=== PATIENT | female | born 1985 | race Caucasian/White ===

== ENCOUNTER 2016-11-24 19:57 | Emergency (ER) | payer BC ==
[2016-11-24 21:59] VITALS: BP 123/86
[2016-11-24] MEDS ORDERED: Acetaminophen TAB* 325 MG PO ONE (22:02)
--- NOTE | 2016-11-24 22:09 | UC ---
FLU HPI - HPI Summary HPI Summary: 4 days for fevers, body aches and cough - History of Current Complaint Chief Complaint: UCGeneralIllness Stated Complaint: ACHY BODY, CONGESTION, FEVER Time Seen by Provider: 11/24/16 22:05 Hx Obtained From: Patient Hx Last Menstrual Period: 10/31/16 ?: No Onset/Duration: Sudden Onset, Lasting Days - 4, Still Present Severity Currently: Moderate Severity Initially: Moderate Associated Signs & Symptoms: Positive: Fever, Myalgia, Cough, Headache Related Hx: Possible Flu/Infectious Exposure - Allergy/Home Medications Allergies/Adverse Reactions: Allergies Allergy/AdvReac Type Severity Reaction Status Date / Time No Known Allergies Allergy Verified 11/24/16 21:59 Home Medications: Home Medications [id number] [DAY TIME/NITE TIME COLD (Liquid)] 1 mis PO DAILY 11/24/16 [History Confirmed 11/24/16] PMH/Surg Hx/FS Hx/Imm Hx Previously Healthy: Yes - Surgical History Surgical History: None - Family History Known Family History: Positive: None - Social History Occupation: Employed Full-time - [employer] Lives: With Family Alcohol Use: Occasionally Substance Use Type: None Smoking Status (MU): Never Smoked Tobacco Review of Systems Constitutional: Fever, Fatigue Skin: Negative Eyes: Negative ENT: Ear Ache Respiratory: Cough Cardiovascular: Negative Gastrointestinal: Negative Genitourinary: Negative Motor: Negative Neurovascular: Negative Musculoskeletal: Arthralgia, Myalgia Neurological: Headache Psychological: Negative All Other Systems Reviewed And Are Negative: Yes Physical Exam Triage Information Reviewed: Yes Appearance: Well-Nourished, Ill-Appearing - mild, Pain Distress - mild Vital Signs: Initial Vital Signs Temp 102.1 F 11/24/16 21:56 Pulse 89 11/24/16 21:56 Resp 16 11/24/16 21:56 BP 123/86 11/24/16 21:56 Pulse Ox 99 11/24/16 21:56 Vital Signs Reviewed: Yes Eye Exam: Normal Eyes: Positive: Conjunctiva Clear ENT Exam: Normal ENT: Positive: Normal ENT inspection, Hearing grossly normal, Pharynx normal, TMs normal. Negative: Nasal congestion, Nasal drainage, Tonsillar swelling, Tonsillar exudate, Trismus, Muffled/hoarse voice Dental Exam: Normal Neck exam: Normal Neck: Positive: Supple, Nontender, No Lymphadenopathy Respiratory Exam: Normal Respiratory: Positive: Chest non-tender, Lungs clear, Normal breath sounds, No respiratory distress, No accessory muscle use Cardiovascular Exam: Normal Cardiovascular: Positive: RRR, No Murmur, Pulses Normal, Brisk Capillary Refill Abdominal Exam: Normal Abdomen Description: Positive: Nontender, No Organomegaly, Soft Bowel Sounds: Positive: Present Musculoskeletal Exam: Normal Musculoskeletal: Positive: Strength Intact, ROM Intact, No Edema Neurological Exam: Normal Neurological: Positive: Alert Psychological Exam: Normal Skin Exam: Normal Diagnostics - Laboratory Diagnostic Studies Completed/Ordered: Influenza B (+) Flu Course/Dx - Course Course Of Treatment: increase fluids, rest, tylenol, ibuprofen, follow with pcp prn - Differential Dx/Diagnosis Differential Diagnosis/HQI/PQRI: Influenza, Pneumonia, Upper Respiratory Infection Provider Diagnoses: Influenza B Discharge - Discharge Plan Condition: Stable Disposition: HOME Patient Education Materials: Acetaminophen (By mouth), Ibuprofen (By mouth), Influenza (ED) Forms: *Work Release Referrals: Georgina Bliss MD [Medical Doctor] - 5 Days Radha Warner MD [Medical Doctor] -
== END 2016-11-24 22:40 | disposition home or self-care (01) ==
LOC: UCCORT 19:57
DX: J11.1 Influenza due to unidentified influenza virus with other respiratory manifestations (principal)
CPT/HCPCS: 87502; 99212; A9270-GY; G0463

== ENCOUNTER 2019-02-10 09:59 | Emergency (ER) | payer BC, OTHER ==
[2019-02-10 10:25] VITALS: BP 132/83
--- NOTE | 2019-02-10 10:43 | UC ---
Respiratory Complaint HPI - HPI Summary HPI Summary: chest tightness x 5 days 5 out of 10 in severity , worse with deep breathing , better with rest, no cough, no cold symptoms c/o body aches, thighs pain , no fever, no chills - History of Current Complaint Chief Complaint: UCRespiratory Stated Complaint: CONGESTION,ACHES Time Seen by Provider: 02/10/19 10:33 Hx Obtained From: Patient Hx Last Menstrual Period: 02/05/19 ?: No Onset/Duration: Gradual Onset, Lasting Days - 5, Still Present Severity Initially: Moderate Severity Currently: Moderate Pain Intensity: 6 Aggravating Factors: Deep Breaths Alleviating Factors: Nothing Associated Signs And Symptoms: Positive: Pleuritic Chest Pain. Negative: Dyspnea, Fever, Chills, Wheezing, Hemoptysis, Dizziness, Calf Pain, Calf Swelling, URI, Nasal Congestion, Hoarseness, Sinus Discomfort - Allergies/Home Medications Allergies/Adverse Reactions: Allergies Allergy/AdvReac Type Severity Reaction Status Date / Time No Known Allergies Allergy Verified 02/10/19 10:22 PMH/Surg Hx/FS Hx/Imm Hx Previously Healthy: Yes - Surgical History Surgical History: None - Family History Known Family History: Positive: None Negative: Diabetes - Social History Alcohol Use: Occasionally Substance Use Type: None Smoking Status (MU): Never Smoked Tobacco Review of Systems All Other Systems Reviewed And Are Negative: Yes Constitutional: Positive: Negative Skin: Positive: Negative Eyes: Positive: Negative ENT: Positive: Negative Respiratory: Negative: Shortness Of Breath, Cough Cardiovascular: Positive: Chest Pain Gastrointestinal: Positive: Negative Is Patient Immunocompromised?: No Physical Exam Triage Information Reviewed: Yes Appearance: Well-Appearing, No Pain Distress, Well-Nourished Vital Signs: Initial Vital Signs Temp 97.5 F 02/10/19 10:22 Pulse 85 02/10/19 10:22 Resp 16 02/10/19 10:22 BP 132/83 02/10/19 10:22 Pulse Ox 100 02/10/19 10:22 Vital Signs Reviewed: Yes Eye Exam: Normal Eyes: Positive: Conjunctiva Clear ENT: Positive: Normal ENT inspection, Hearing grossly normal, Pharynx normal Neck exam: Normal Neck: Positive: Supple, Nontender, No Lymphadenopathy Respiratory: Positive: Chest non-tender, Lungs clear, Normal breath sounds Cardiovascular: Positive: RRR, No Murmur, Pulses Normal Abdominal Exam: Normal Skin Exam: Normal Diagnostics - Radiology No standard instances Radiology Interpretation Completed By: Radiologist Summary of Radiographic Findings: chest xray report : IMPRESSION: NO ACTIVE CARDIOPULMONARY DISEASE. Respiratory Course/Dx - Differential Dx/Diagnosis Provider Diagnosis: Pleuritic chest pain Discharge - Sign-Out/Discharge Documenting (check all that apply): Patient Departure All imaging exams completed and their final reports reviewed: No Studies - Discharge Plan Condition: Stable Disposition: HOME Prescriptions: Naproxen [Naproxen 500 mg tab] 500 mg PO BID #20 tablet Patient Education Materials: Pleurisy (ED) Referrals: Michael Calero MD [Primary Care Provider] - 5 Days - Billing Disposition and Condition Condition: STABLE Disposition: Home
== END 2019-02-10 11:05 | disposition home or self-care (01) ==
LOC: UCCORT 09:59
DX: R07.81 Pleurodynia (principal)
CPT/HCPCS: 71046; 99212; G0463